=== PATIENT | female | born 1945 | race Caucasian/White ===

== ENCOUNTER 2017-12-13 09:00 | Outpatient (RCR) ==
--- NOTE | 2017-11-21 15:20 | RS.OPPTEV2 ---
Date of Note: 11/20/17 Visit #: 1 Date of Evaluation: 11/20/17 Payer Source: MEDICARE Treatment Diagnosis: Low back and Right LE radiating symptoms. History of Condition/Mechanism of Injury:: Patient reports history of scoliosis and going to Pain Management for several years. She has been receiving injections for back pain. Prior Level of Function.....Patient was independent with: ADL's, Self Care, Work /Vocation, Caregiving, Ambulation/Mobility, Community Integration/Access Functional Limitations: ADL's, Pushing, Pulling, Lifting, Sitting, Standing, Ambulation Current Subjective/complaints:: Patient reports low back and right LE symptoms. States she has pain in the right low back and symptoms of numbness in the lateral right lower leg and great toe. States she had been doing well with the injections she was receiving to her low back, but the last set of injections in September have not seemed to have helped as much. 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 States pushing patients on stretchers can be very difficult. She is able to work four hours without too much difficulty, but if she has to work eight hours, she has a lot of increased pain. She tries not to take pain medication, but sometimes after pain has increased due to work, she takes some to be able to rest. [place], with cows and [place]. States she has to go out and feed the animals once a day. Reports sweeping and shoveling causes increased back pain. Reports she is usually able to sleep well at night. Reports pain on right side. States muscles on the right low back always feel hard and tight. Medical History Medical History Comments:: Scoliosis Surgical History Comments:: DAWSON CAMERON Smoking Status: Never smoker Hx Home Medications: Flexeril,[place] Patient's Goals: Her goal is to get some relief of back pain. Pain Assessment - Pain Description Pain Location: Low back and right leg pain Current Pain Intensity: 3/10 Worst Pain Intensity: 10/10 Functional Outcome Measure Oswestry LBP: 62 - G Codes & Severity Modifier G Codes & Modifier: Mobility current CL. Mobility goal CJ Source of G Code score: Oswestry LBP scale Observation - Observation Inspection: Right shoulder lower than the left in standing. Demonstrates a significant scoliosis with right convexity at the lumbar spine. In supine, patient demonstrates elevated left iliac crest and left LE appears shorter than the right. Posture: Forward Head, Rounded Shoulders Handedness: Right Gait - Gait Pattern Gait Comments: Patient ambulates without an assistive device with a flexed forward gait. Demonstrates a laterally flexed trunk to the left. - ROM Lumbar Flexion: Hand reach to patellae Sidebending to Left: Reach to Lateral Joint Line Sidebending to Right: Reach to Mid-thigh Comments: Right sidebending is limited due to spinal limitation with right lumbar convexity. Tightness reported with lumbar flexion. States lumbar extension does not necessarily cause increased pain, but it does not feel good. AROM throughout bilateral LE's is WFL's. - Strength Trunk Rotation: 4- Good- Comments: LE hip ER 4-/5. All else of LE strength 4/5. - Special Tests SLR Test: Negative Left, Negative Right Seated Dural Stretch Test: Negative Left, Negative Right SI Joint Compression: Negative SI Joint Distraction: Negative Palpation Comments:: Patient demonstrates spinal deformity with signicant right lumbar convexity. Reports soreness with moderate pressure along the lumbar paraspinals. Demonstrates hypomobility of lumbar spine. Sensation - Sensation Comments: Describes less sensitivity along with tingling, along the lateral lower leg and great toe of the right LE. All else intact. Additional Comments: Additional Comments: Left SLR 50-55 degrees, Right SLR 45-50 degrees. Piriformis tight on the right. Anterior hip tighter on the left. In supine, left iliac crest is elevated, which causes the left LE to appear approximately an 1 1/2-2 inches shorter than the right LE. Interventions - Exercise/Activities/Manual Therapy Exercises/Activities: Patient instructed in bilateral hip adductor stretch and passive right sidelying stretch for Left Quadratus Lumborum. Manual Therapy: NA HOME EXERCISE PROGRAM: bialteral hip adductor stretch and passive right sidelying stretch for Left Quadratus Lumborum. 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 She presents today with reports of primarily right low back and right LE pain. Also with tingling in the right lateral lower leg and foot. She presents with marked deformity of the lumbar spine from scoliosis and consequently exhibits an imbalance of muscle length along the spine and in the LE's. She demonstrates potential to benefit from stretching exercises to address muscle imbalances and relieve some stress off of the lumbar spine. She will also benefit from postural education and strengthening to the trunk and LE' s. Patient Education: Education of diagnosis, Body/Joint mechanics, Home Exercise Program, Activity Modification, Education of Plan of Care Rehab Potential: Good Short Term Goals Goal #1: Patient independent and compliant with HEP. Goal to be met by: 12/01/17 Goal #2: SLR equal bilaterally. Goal to be met by: 12/05/17 Goal #3: Right LE symptoms localized to the low back. Goal to be met by: 12/05/17 Goal #4: Pt to demonstrate good postural awareness. Goal to be met by: 12/05/17 Intermediate Goals Goal #1: Pt knows HEP and to continue ex's to maintain functional level at D/C. Goal to be met by: 12/31/17 Goal #2: Score on Oswestry LBP scale improved to less than or equal to 39%. Goal to be met by: 12/31/17 Goal #3: Pt to work 8 hour shift and perform duties with min. low back discomfort. Goal to be met by: 12/31/17 Goal #4: Pt able to care for animals at home with minimal increased back pain. Goal to be met by: 12/31/17 Plan - Treatment to be Provided Procedures: Therapeutic Exercises, Therapeutic Activity, Manual Therapy, Patient Education Modalities: No Modalities - Treatment Plan Frequency: 2-3 X week Duration: 4 weeks ORDER # VISITS AND/OR THROUGH DATE: 12/31/17 - Treatment Code (1) Low back pain Code(s): M54.5 - LOW BACK PAIN Qualifiers: Chronicity: chronic Back pain laterality: right Sciatica presence: unspecified whether sciatica present Qualified Code(s): M54.5 - Low back pain ; G89.29 - Other chronic pain; G89.29 - Other chronic pain (2) Displacement of lumbar disc with radiculopathy Code(s): M51.16 - INTERVERTEBRAL DISC DISORDERS W RADICULOPATHY, LUMBAR REGION Comments: M51.16 (3) Intervertebral disc disorder with radiculopathy of lumbosacral region Code(s): M51.17 - INTVRT DISC DISORDERS W RADICULOPATHY, LUMBOSACRAL REGION Comments: M51.17 (4) Degenerative lumbar spinal stenosis Code(s): M48.061 - SPINAL STENOSIS, LUMBAR REGION WITHOUT NEUROGENIC CRESCENCIO Comments: M48.061 (5) Scoliosis deformity of spine Code(s): M41.9 - SCOLIOSIS, UNSPECIFIED Qualifiers: Scoliosis type: unspecified scoliosis Spinal region: thoracolumbar Qualified Code(s): M41.9 - Scoliosis, unspecified
--- NOTE | 2017-11-22 15:54 | RS.OPPTDN ---
Subjective Date of Note: 11/22/17 Visit #: 1 Date of Evaluation: 11/20/17 Payer Source: MEDICARE Treatment Diagnosis: Low back and Right LE radiating symptoms. Current Subjective/complaints:: Patient reports she did get to try the right sidelying stretch. States she has been falling asleep in that position. Reports she can tell the right HS feels much tighter than the left. Interventions - Exercise/Activities/Manual Therapy Exercises/Activities: Patient received stretching to bilateral HS, SKTC, piriformis, and figure 4. Patient positioned in right sidelying over rolled up pillow, and left iliac crest was inferiorly depressed while she raised left arm over her head for a passive stretch. Patient instructed in bilateral hip adductor stretch and passive right sidelying stretch for Left Quadratus Lumborum. Manual Therapy: NA HOME EXERCISE PROGRAM: bialteral hip adductor stretch and passive right sidelying stretch for Left Quadratus Lumborum. - Charges Timed Code Treatment Minutes: 31 mins Total Treatment Time: 35 mins Procedures billed for this date of service:: Ex2 Assessment: Patient tolerates stretching well, with reports of significant tightness felt in the right HS. Patient is very receptive to instructions/ advice. Patient demonstrates compliance with HEP?: Yes Short Term Goals Goal #1: Patient independent and compliant with HEP. Goal to be met by: 12/01/17 Progress towards Goal:: Progressing Goal #2: SLR equal bilaterally. Goal to be met by: 12/05/17 Goal #3: Right LE symptoms localized to the low back. Goal to be met by: 12/05/17 Goal #4: Pt to demonstrate good postural awareness. Goal to be met by: 12/05/17 Fdc Goals Goal #1: Pt knows HEP and to continue ex's to maintain functional level at D/C. Goal to be met by: 12/31/17 Goal #2: Score on Oswestry LBP scale improved to less than or equal to 39%. Goal to be met by: 12/31/17 Goal #3: Pt to work 8 hour shift and perform duties with min. low back discomfort. Goal to be met by: 12/31/17 Goal #4: Pt able to care for animals at home with minimal increased back pain. Goal to be met by: 12/31/17 Plan PLAN OF CARE EXPIRES ON:: 12/31/17 ORDER # VISITS AND/OR THROUGH DATE: 12/31/17 PLAN: Continue with stretching exercises and progress to trunk and LE strengthening.
--- NOTE | 2017-11-25 12:09 | RS.OPPTDN ---
Subjective Date of Note: 11/25/17 Visit #: 3 Date of Evaluation: 11/20/17 Payer Source: MEDICARE Treatment Diagnosis: Low back and Right LE radiating symptoms. Current Subjective/complaints:: Patient reports stretching is helping her pain. Reports she was using the sidelying stretch with roll under side to be able to sleep last night. Pain Assessment - Pain Description Pain Location: LB, bilateral S-I joints, and right LE. Pain Description: Aching Current Pain Intensity: mild to mod Interventions - Exercise/Activities/Manual Therapy Exercises/Activities: Patient received stretching to bilateral HS, SKTC, piriformis, and figure 4. Isometric hip flexion, isometric hip add. MET with isometric hip extension each side. Ended with additional stretching and with bridging. Total minutes of Exercise: 28mins Manual Therapy: NA HOME EXERCISE PROGRAM: bialteral hip adductor stretch and passive right sidelying stretch for Left Quadratus Lumborum. Bridging. - Charges Timed Code Treatment Minutes: 28mins Total Treatment Time: 30mins Procedures billed for this date of service:: EX2 Assessment: Patient responding well to exercise with reports of some pain relief. Patient Education: Education of diagnosis, Body/Joint mechanics, Home Exercise Program Patient demonstrates compliance with HEP?: Yes Short Term Goals Goal #1: Patient independent and compliant with HEP. Goal to be met by: 12/01/17 Progress towards Goal:: Progressing Goal #2: SLR equal bilaterally. Goal to be met by: 12/05/17 Goal #3: Right LE symptoms localized to the low back. Goal to be met by: 12/05/17 Goal #4: Pt to demonstrate good postural awareness. Goal to be met by: 12/05/17 [facility] Goals Goal #1: Pt knows HEP and to continue ex's to maintain functional level at D/C. Goal to be met by: 12/31/17 Goal #2: Score on Oswestry LBP scale improved to less than or equal to 39%. Goal to be met by: 12/31/17 Goal #3: Pt to work 8 hour shift and perform duties with min. low back discomfort. Goal to be met by: 12/31/17 Goal #4: Pt able to care for animals at home with minimal increased back pain. Goal to be met by: 12/31/17 Plan PLAN OF CARE EXPIRES ON:: 12/31/17 ORDER # VISITS AND/OR THROUGH DATE: 12/31/17 PLAN: Progress MET and pelvic stability exercises.
--- NOTE | 2017-11-28 13:23 | RS.OPPTDN ---
Subjective Date of Note: 11/28/17 Visit #: 4 Date of Evaluation: 11/20/17 Payer Source: MEDICARE Treatment Diagnosis: Low back and Right LE radiating symptoms. Current Subjective/complaints:: Patient reports increased right lowback and hip pain that limited sleep last night. 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 Reports some pain relief following treatment today. She will be gone next week but will continue HEP. Interventions - Exercise/Activities/Manual Therapy Exercises/Activities: Patient received stretching to bilateral HS, SKTC, piriformis, and figure 4. Isometric hip flexion, isometric hip add. Bridging. Ended with additional stretching. Total minutes of Exercise: 15mins Manual Therapy: 20mins Manual therapy of myofascial and soft tissue massage to the bilateral lumbar paraspinals and around S-I joints. Total minutes of Manual Therapy: 20mins HOME EXERCISE PROGRAM: bialteral hip adductor stretch and passive right sidelying stretch for Left Quadratus Lumborum. Bridging. - Objective Findings Observations,measurements,etc.: Patient with increased muscle tone along the right lumbar paraspinals. - Charges Timed Code Treatment Minutes: 35mins Total Treatment Time: 40mins Procedures billed for this date of service:: EX, MT Assessment: Patient with increase pain today, but responds to manual therapy with reports of pain reduction. Patient Education: Body/Joint mechanics, Home Exercise Program Comments: Paitent given tennis ball for self massage and trigger point work. Patient advised to continue HEP with focus on stretching. Patient demonstrates compliance with HEP?: Yes Short Term Goals Goal #1: Patient independent and compliant with HEP. Goal to be met by: 12/01/17 Progress towards Goal:: Partially Met Goal #2: SLR equal bilaterally. Goal to be met by: 12/05/17 Progress towards Goal:: Progressing Goal #3: Right LE symptoms localized to the low back. Goal to be met by: 12/05/17 Progress towards Goal:: Not Met Goal #4: Pt to demonstrate good postural awareness. Goal to be met by: 12/05/17 Progress towards Goal:: Progressing Alf Goals Goal #1: Pt knows HEP and to continue ex's to maintain functional level at D/C. Goal to be met by: 12/31/17 Goal #2: Score on Oswestry LBP scale improved to less than or equal to 39%. Goal to be met by: 12/31/17 Goal #3: Pt to work 8 hour shift and perform duties with min. low back discomfort. Goal to be met by: 12/31/17 Goal #4: Pt able to care for animals at home with minimal increased back pain. Goal to be met by: 12/31/17 Plan PLAN OF CARE EXPIRES ON:: 12/31/17 ORDER # VISITS AND/OR THROUGH DATE: 12/31/17 PLAN: Progress with exercise when patient returns to therapy.
--- NOTE | 2017-12-09 16:30 | RS.OPPTDN ---
Subjective Date of Note: 12/09/17 Visit #: 5 Date of Evaluation: 11/20/17 Payer Source: MEDICARE Treatment Diagnosis: Low back and Right LE radiating symptoms. Current Subjective/complaints:: Patient reports she was in severe pain when traveling last week. States she had such high pain when walking she had to [place] the [place]. Patient reports little to no discomfort in the right S-I joint and LE following treatment. Pain Assessment - Pain Description Pain Location: Right S-I, lateral hip Current Pain Intensity: mod prior to and little to no discomfort following treatment Other Comments regarding Pain:: Patient reports pain and tenderness with light to mod manual pressure just lateral to the right S-I joint. - Heat/Cryotherapy Treatment: Hot Pack ([id number] to the lowback and hips prior to MT and EX. Patient in supine. ) Interventions - Exercise/Activities/Manual Therapy Exercises/Activities: Patient received stretching to bilateral HS, SKTC, piriformis, and figure 4. Isometric hip flexion, isometric hip add. Bridging. ITB and long piriformis stretching to end treatment. Total minutes of Exercise: 15mins Manual Therapy: [id number]. Trigger point release to the right S-I joint area. Manual therapy of myofascial and soft tissue massage to the Right S-I joint and gluteal muscle group during stretching. MET with isometric hip ext on the left in attempt to correct leg length, as right is approx 1/4" longer. (Isometric hip ext on right increases pain) Total minutes of Manual Therapy: 14mins HOME EXERCISE PROGRAM: bialteral hip adductor stretch and passive right sidelying stretch for Left Quadratus Lumborum. Bridging. - Objective Findings Observations,measurements,etc.: Patient demos marked gait deviation with decreased stance on right prior to treatment. She demos only slight deviation following treatment and reports little to no pain. - Charges Timed Code Treatment Minutes: 29mins Total Treatment Time: 39mins Procedures billed for this date of service:: EX, MT Assessment: Patient reposnds well to treatment with reports of reduction in pain and in improvement in gait pattern. Patient Education: Home Exercise Program, Home Safety, Activity Modification Patient demonstrates compliance with HEP?: Yes Short Term Goals Goal #1: Patient independent and compliant with HEP. Goal to be met by: 12/01/17 Progress towards Goal:: Partially Met Goal #2: SLR equal bilaterally. Goal to be met by: 12/05/17 Progress towards Goal:: Progressing Goal #3: Right LE symptoms localized to the low back. Goal to be met by: 12/05/17 Progress towards Goal:: Not Met Goal #4: Pt to demonstrate good postural awareness. Goal to be met by: 12/05/17 Progress towards Goal:: Progressing Skilled Nursing Goals Goal #1: Pt knows HEP and to continue ex's to maintain functional level at D/C. Goal to be met by: 12/31/17 Progress towards goal: Progressing Goal #2: Score on Oswestry LBP scale improved to less than or equal to 39%. Goal to be met by: 12/31/17 Goal #3: Pt to work 8 hour shift and perform duties with min. low back discomfort. Goal to be met by: 12/31/17 Goal #4: Pt able to care for animals at home with minimal increased back pain. Goal to be met by: 12/31/17 Plan PLAN OF CARE EXPIRES ON:: 12/31/17 ORDER # VISITS AND/OR THROUGH DATE: 12/31/17 PLAN: Conitnue with manual therapy and progress exercise to reduce pain and increase functional gait and mobility.
--- NOTE | 2017-12-11 11:17 | RS.OPPTDN ---
Subjective Date of Note: 12/11/17 Visit #: 6 Date of Evaluation: 11/20/17 Payer Source: MEDICARE Treatment Diagnosis: Low back and Right LE radiating symptoms. Current Subjective/complaints:: Patient reports having a flair-up of pain yesterday. States she was painting and went up and down a couple of steps on a ladder. Report some improvement in pain following treatment today. Pain Assessment - Pain Description Pain Location: Right S-I joint and mid gluteal region Current Pain Intensity: mod+ Other Comments regarding Pain:: Patient with increased pain with light palation of the right S-I area. Interventions - Exercise/Activities/Manual Therapy Exercises/Activities: Patient received stretching to bilateral HS, SKTC, piriformis, ITB, and figure 4. Isometric hip flexion, isometric hip add. Pelvic tilt, Bridging. Ended with additional stretching. Total minutes of Exercise: 15mins Manual Therapy: 20mins. Trigger point release to the right S-I joint area. Manual therapy of myofascial and soft tissue massage to the right lower lumbar paraspinals, S-I joint, and mid gluteal muscle with patient in left side-lying. Total minutes of Manual Therapy: 20mins HOME EXERCISE PROGRAM: bialteral hip adductor stretch and passive right sidelying stretch for Left Quadratus Lumborum. Bridging. - Charges Timed Code Treatment Minutes: 35mins Total Treatment Time: 40mins Procedures billed for this date of service:: EX, MT Assessment: Patient responds well to manual therapy today with reports of decreased pain. She seems to be aggravating symptoms with the work she is doing at home. Patient Education: Body/Joint mechanics, Home Exercise Program, Activity Modification Comments: Patient advised to cut back on painting and going up/down step ladder. Also, to take frequent breaks for stretching and pelvic alignment exercises. Patient demonstrates compliance with HEP?: Yes Short Term Goals Goal #1: Patient independent and compliant with HEP. Goal to be met by: 12/01/17 Progress towards Goal:: Partially Met Goal #2: SLR equal bilaterally. Goal to be met by: 12/05/17 Progress towards Goal:: Progressing Goal #3: Right LE symptoms localized to the low back. Goal to be met by: 12/05/17 Progress towards Goal:: Not Met Goal #4: Pt to demonstrate good postural awareness. Goal to be met by: 12/05/17 Progress towards Goal:: Progressing Watermelon Inspector Goals Goal #1: Pt knows HEP and to continue ex's to maintain functional level at D/C. Goal to be met by: 12/31/17 Progress towards goal: Progressing Goal #2: Score on Oswestry LBP scale improved to less than or equal to 39%. Goal to be met by: 12/31/17 Goal #3: Pt to work 8 hour shift and perform duties with min. low back discomfort. Goal to be met by: 12/31/17 Goal #4: Pt able to care for animals at home with minimal increased back pain. Goal to be met by: 12/31/17 Plan PLAN OF CARE EXPIRES ON:: 12/31/17 ORDER # VISITS AND/OR THROUGH DATE: 12/31/17 PLAN: Continue manual therapy and progressive exercise to reduce pain and improve functional mobility and ambulation.
--- NOTE | 2017-12-13 11:41 | RS.OPPTDN ---
Subjective Date of Note: 12/13/17 Visit #: 7 Date of Evaluation: 11/20/17 Payer Source: MEDICARE Treatment Diagnosis: Low back and Right LE radiating symptoms. Current Subjective/complaints:: Patient states she is not doing good today. States she is really hurting in the right hip/low back and having cramping into the right calf. States she has been painting with her sister and thinks that activity has caused increased pain. Reports significant tenderness with manual therapy to right gluteal region. Pain Assessment - Pain Description Pain Location: right SI /low back and radiating into calf. Current Pain Intensity: bad today, not quanitified - Heat/Cryotherapy Treatment: Hot Pack (X 15 mins to low back while supine, prior to stretching and MT) Interventions - Exercise/Activities/Manual Therapy Exercises/Activities: Patient received stretching to bilateral HS, SKTC, piriformis, ITB, and figure 4. Total minutes of Exercise: 12 mins. Manual Therapy: 19 mins. Trigger point release to the right S-I joint area. Manual therapy of myofascial and soft tissue massage to the right lower lumbar paraspinals, S-I joint, and mid gluteal muscle with patient in left side-lying. Patient with significant reports of tenderness in the beginning, but reports this decreased and was able to tolerate deeper pressure with manual therapy as treatment continued. HOME EXERCISE PROGRAM: bialteral hip adductor stretch and passive right sidelying stretch for Left Quadratus Lumborum. Bridging. - Charges Timed Code Treatment Minutes: 31 mins Total Treatment Time: 46 mins Procedures billed for this date of service:: HP, MT, EX Assessment: Patient with reports of increased pain possibly due to increased activitity such as painting and use of a ladder. She exhibits continued tenderness and muscle guarding in the gluteal muscles, which is improved with manual therapy. She demonstrates potential to benefit from continued manual therapy, stretching, and progressed stability exercises. Patient demonstrates compliance with HEP?: Yes Short Term Goals Goal #1: Patient independent and compliant with HEP. Goal to be met by: 12/01/17 Progress towards Goal:: Partially Met Goal #2: SLR equal bilaterally. Goal to be met by: 12/05/17 Progress towards Goal:: Progressing Goal #3: Right LE symptoms localized to the low back. Goal to be met by: 12/05/17 Progress towards Goal:: Not Met Goal #4: Pt to demonstrate good postural awareness. Goal to be met by: 12/05/17 Progress towards Goal:: Progressing Assisted Goals Goal #1: Pt knows HEP and to continue ex's to maintain functional level at D/C. Goal to be met by: 12/31/17 Progress towards goal: Progressing Goal #2: Score on Oswestry LBP scale improved to less than or equal to 39%. Goal to be met by: 12/31/17 Goal #3: Pt to work 8 hour shift and perform duties with min. low back discomfort. Goal to be met by: 12/31/17 Goal #4: Pt able to care for animals at home with minimal increased back pain. Goal to be met by: 12/31/17 Plan PLAN OF CARE EXPIRES ON:: 12/28/17 ORDER # VISITS AND/OR THROUGH DATE: 12/31/17 PLAN: continue manual therapy and progression of exercises.
== END 2017-12-14 ==
PROVIDERS: ATTEND Pain Medicine Interventional Pain Medicine
DX: M51.16 Intervertebral disc disorders with radiculopathy, lumbar region (principal); M51.17 Intervertebral disc disorders with radiculopathy, lumbosacral region; M48.061 Spinal stenosis, lumbar region without neurogenic claudication; M48.07 Spinal stenosis, lumbosacral region; M47.816 Spondylosis without myelopathy or radiculopathy, lumbar region; M47.817 Spondylosis without myelopathy or radiculopathy, lumbosacral region; M51.36 Other intervertebral disc degeneration, lumbar region; M51.37 Other intervertebral disc degeneration, lumbosacral region

== ENCOUNTER 2017-12-30 13:00 | Outpatient (RCR) ==
--- NOTE | 2017-12-16 13:35 | RS.OPPTDN ---
Subjective Date of Note: 12/16/17 Visit #: 8 Date of Evaluation: 11/20/17 Payer Source: MEDICARE Treatment Diagnosis: Low back and Right LE radiating symptoms. Current Subjective/complaints:: Patient reports right S-I pain conitnues. States she is finished painting and will not be climbing ladder now. 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 She has seen physician and will be having her scheduled injection and he will also injection of the right S-I joint. Pain Assessment - Pain Description Pain Location: right lowback, S-I joint, and mid gluteal region Current Pain Intensity: moderate Interventions - Exercise/Activities/Manual Therapy Exercises/Activities: Patient received stretching to bilateral HS, SKTC, piriformis, ITB, and figure 4. Isometric hip add and isometric hip flexion. Left isometric hip extension. Total minutes of Exercise: 10mins Manual Therapy: Trigger point release to the right S-I joint area. Manual therapy of myofascial and soft tissue massage to the right lower lumbar paraspinals, S-I joint, and mid gluteal muscle with patient in left side-lying. Patient reports tenderness to the right mid glut and S-I area, with patient reporting better tolerance as manual therapy progressed. Total minutes of Manual Therapy: 20mins HOME EXERCISE PROGRAM: bialteral hip adductor stretch and passive right sidelying stretch for Left Quadratus Lumborum. Bridging. - Objective Findings Observations,measurements,etc.: Patient demos improved gait pattern following manual therapy. - Charges Timed Code Treatment Minutes: 30mins Total Treatment Time: 40mins Procedures billed for this date of service:: EX, MT Assessment: Patient responds well to manual therapy with reports of reduction in pain and improvement in ambulation. Patient Education: Body/Joint mechanics, Home Exercise Program Patient demonstrates compliance with HEP?: Yes Short Term Goals Goal #1: Patient independent and compliant with HEP. Goal to be met by: 12/01/17 Progress towards Goal:: Partially Met Goal #2: SLR equal bilaterally. Goal to be met by: 12/05/17 Progress towards Goal:: Progressing Goal #3: Right LE symptoms localized to the low back. Goal to be met by: 12/05/17 Progress towards Goal:: Not Met Goal #4: Pt to demonstrate good postural awareness. 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 Goal to be met by: 12/31/17 Progress towards goal: Progressing Goal #2: Score on Oswestry LBP scale improved to less than or equal to 39%. Goal to be met by: 12/31/17 Goal #3: Pt to work 8 hour shift and perform duties with min. low back discomfort. Goal to be met by: 12/31/17 Progress towards goal: Not Met Goal #4: Pt able to care for animals at home with minimal increased back pain. Goal to be met by: 12/31/17 Progress towards goal: Progressing Plan PLAN OF CARE EXPIRES ON:: 12/31/17 ORDER # VISITS AND/OR THROUGH DATE: 12/31/17 PLAN: Continue manual therapy and progress exercise to reduce pain and increase functional activity and gait pattern.
--- NOTE | 2017-12-18 11:47 | RS.OPPTDN ---
Subjective Date of Note: 12/18/17 Visit #: 9 Date of Evaluation: 11/20/17 Payer Source: MEDICARE Treatment Diagnosis: Low back and Right LE radiating symptoms. Current Subjective/complaints:: Patient reports pain in her right LE has been worse the last few days. Reports trying HEP but nothing has helped. She is waiting on word from physicians office about being seen today. She reports muscle tenderness at the right S-I and gluteal region, but not as intense. Patient agrees to contact this department if she has injections and needs to cancel Fridays appointment. Pain Assessment - Pain Description Pain Location: Right S-I, gluts, and into right LE Current Pain Intensity: mod+ - Heat/Cryotherapy Treatment: Hot Pack ([id number] to lowback and hips prior to EX and MT. Patient in supine) Interventions - Exercise/Activities/Manual Therapy Exercises/Activities: Patient received stretching to bilateral HS, SKTC, piriformis, ITB, and figure 4. Isometric hip add and isometric hip flexion. Left isometric hip extension. Total minutes of Exercise: 10mins Manual Therapy: Trigger point release to the right S-I joint area. Manual therapy of myofascial and soft tissue massage to the right lower lumbar paraspinals, S-I joint, and mid gluteal muscle with patient in left side-lying. Tenderness continues at the right mid glut and S-I area, but reports not as intense. Total minutes of Manual Therapy: 22mins HOME EXERCISE PROGRAM: bialteral hip adductor stretch and passive right sidelying stretch for Left Quadratus Lumborum. Bridging. - Charges Timed Code Treatment Minutes: 32mins Total Treatment Time: 42mins Procedures billed for this date of service:: EX, MT Assessment: Patient having a flair-up of right LE radicular symptoms. She should be seeing physician and receiving injections. May attend Saturday if she is waiting on injections and she feels todays treatment helped reduce symptoms. Comments: Advised patient to continue basic HEP of stretching and pelvic alignment exercises. Patient demonstrates compliance with HEP?: Yes Short Term Goals Goal #1: Patient independent and compliant with HEP. Goal to be met by: 12/01/17 Progress towards Goal:: Met Goal #2: SLR equal bilaterally. Goal to be met by: 12/05/17 Progress towards Goal:: Progressing Goal #3: Right LE symptoms localized to the low back. Goal to be met by: 12/05/17 Progress towards Goal:: Not Met Comments:: Regressed today Goal #4: Pt to demonstrate good postural awareness. 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 Goal to be met by: 12/31/17 Progress towards goal: Met Comments: Patient know basic HEP if today is her last session. Goal #2: Score on Oswestry LBP scale improved to less than or equal to 39%. Goal to be met by: 12/31/17 Progress towards goal: Not Met Goal #3: Pt to work 8 hour shift and perform duties with min. low back discomfort. Goal to be met by: 12/31/17 Progress towards goal: Not Met Goal #4: Pt able to care for animals at home with minimal increased back pain. Goal to be met by: 12/31/17 Progress towards goal: Progressing Plan PLAN OF CARE EXPIRES ON:: 12/31/17 ORDER # VISITS AND/OR THROUGH DATE: 12/31/17 PLAN: Hold treatment pending appointment with physician and injections.
--- NOTE | 2017-12-26 14:21 | RS.PTSUM ---
Progress Note/Summary Date of Note: 12/24/17 Date of Evaluation: 11/20/17 Number of Visits: 10 Current Complaints/Gains: Patient states she received injections in her right SI /hip region last week. States it has seemed to help until today. States she is feeling worse today, maybe from too much activity. She worked 4 hours yesterday , which bothered her back. She washed and cleaned out a vehicle this weekend. Objective Measurements/Presentation: Patient received assistance with stretching the right HS, piriformis, lower trunk rotation, and anterior hip joint. Performed bridging, isometric trunk rotation, and SLR's (2 sets of 10 SLR). X 19 mins. Received DTM and trigger point work X 18 mins to right superior gluteal region following exercises. Total treatment time 37 mins. Units charged: EX, Manual therapy G Codes: Mobility current CL. Mobility goal CJ Source of G Code Score: Oswestry LBP scale: score of 62 (same score as evaluation, but some areas have improved while some have gotten a little worse. ) She shows improvement in the categories of sitting, standing, social life, and changing degree of pain. Areas she rated worse were lifting,sleeping, and traveling. - Short Term Goals Goal #1: Patient independent and compliant with HEP. Goal to be met by: 01/02/18 Progress towards Goal:: Met Goal #2: SLR equal bilaterally. Goal to be met by: 01/02/18 Progress towards Goal:: Progressing Goal #3: Right LE symptoms localized to the low back. Goal to be met by: 01/02/18 Progress towards Goal:: No Change Goal #4: Pt to demonstrate good postural awareness. Goal to be met by: 01/02/18 Progress towards Goal:: Progressing - Senior Care Goals Goal #1: Pt knows HEP and to continue ex's to maintain functional level at D/C. Goal to be met by: 12/31/17 Progress towards goal: Met Goal #2: Score on Oswestry LBP scale improved to less than or equal to 39%. Goal to be met by: 01/16/18 Progress towards goal: Not Met Goal #3: Pt to work 4 hour shift and perform duties with min. low back discomfort. Goal to be met by: 01/16/18 Progress towards goal: Not Met Goal #4: Pt able to care for animals at home with minimal increased back pain. Goal to be met by: 01/16/18 Progress towards goal: Progressing - Assessment Assessment of Improvement/Progress: Patient reports improved tolerance with stretching and less tenderness to the right SI and superior gluteal region. She reports improved tolerance for sitting and standing activities. We have focused treatment at this point on stretching, manual therapy, and a small amount of stability exercises. She demonstrates potential to benefit from two more weeks of therapy to focus on strengthening and functional activity to improve her tolerance for work and activities. - Plan Plan: Will request continuation of therapy sessions. Frequency: 3 X week Duration: 2 weeks PLAN OF CARE EXPIRES ON:: 01/16/18 ORDER # VISITS AND/OR THROUGH DATE: 01/16/18
--- NOTE | 2017-12-26 14:36 | RS.OPPTDN ---
Subjective Date of Note: 12/26/17 Visit #: 11 Date of Evaluation: 11/20/17 Payer Source: MEDICARE Treatment Diagnosis: Low back and Right LE radiating symptoms. Current Subjective/complaints:: Patient states she feels better today than she did on Saturday. States working the 4 hours on Saturday really made her hurt worse. States she is performing her exercises at home. States she would like to continue therapy for more stability exercises, as the therapy has improved her tolerance for sitting and standing. Reports continued discomfort into the right lower leg. Interventions - Exercise/Activities/Manual Therapy Exercises/Activities: Patient received stretching to bilateral HS, SKTC, piriformis,and figure 4.Attempted contract-relax technique for HS stretch, but patient could not tolerate isometric into right hip extension due to back pain. Attempts at ITB stretch in sidelying causes tingling in her right foot. Stretching of ITB was discontinued in that position. Performs isometric hip add and, hip flexion, and trunk rotation. SLR 2 sets of 10 reps each leg, bridging x 10 reps. Total minutes of Exercise: X 19 mins Manual Therapy: Manual therapy of myofascial and soft tissue massage to the right lower lumbar paraspinals, S-I joint, and mid gluteal muscle with patient in left side-lying. Mild tenderness reported now with treatment. Total minutes of Manual Therapy: X 17 mins HOME EXERCISE PROGRAM: bialteral hip adductor stretch and passive right sidelying stretch for Left Quadratus Lumborum. Bridging. - Charges Timed Code Treatment Minutes: 36 mins Total Treatment Time: 36 mins Procedures billed for this date of service:: EX, manual therapy Assessment: Patient with less tenderness and less obvious trigger points to right lumbar paraspinals, SI region, and superior gluteal regon. Advised patient not to continue the left sidelying right IT band stretch if it increases radicular symptoms into the right LE. Patient Education: Education of diagnosis, Body/Joint mechanics, Home Exercise Program, Education of Plan of Care Patient demonstrates compliance with HEP?: Yes Short Term Goals Goal #1: Patient independent and compliant with HEP. Goal to be met by: 01/02/18 Progress towards Goal:: Met Goal #2: SLR equal bilaterally. Goal to be met by: 01/02/18 Progress towards Goal:: Progressing Goal #3: Right LE symptoms localized to the low back. Goal to be met by: 01/02/18 Progress towards Goal:: No Change Goal #4: Pt to demonstrate good postural awareness. 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 Goal to be met by: 12/31/17 Progress towards goal: Met Goal #2: Score on Oswestry LBP scale improved to less than or equal to 39%. Goal to be met by: 01/16/18 Progress towards goal: Not Met Goal #3: Pt to work 4 hour shift and perform duties with min. low back discomfort. Goal to be met by: 01/16/18 Progress towards goal: Not Met Goal #4: Pt able to care for animals at home with minimal increased back pain. Goal to be met by: 01/16/18 Progress towards goal: Progressing Plan PLAN OF CARE EXPIRES ON:: 01/16/18 ORDER # VISITS AND/OR THROUGH DATE: 01/16/18 PLAN: Progress stability and functional activities.
--- NOTE | 2017-12-30 15:44 | RS.OPPTDN ---
Subjective Date of Note: 12/30/17 Visit #: 12 Date of Evaluation: 11/20/17 Payer Source: MEDICARE Treatment Diagnosis: Low back and Right LE radiating symptoms. Current Subjective/complaints:: Patient reports injection has helped but she worked 4 hours this morning and right gluteal area pain has increased. Reports feeling much better following manual therapy and is going home to rest. Pain Assessment - Pain Description Pain Location: Right S-I and gluteal region, radiating pain into right LE. Current Pain Intensity: mod to high Other Comments regarding Pain:: Patient reports pain reduced to mild with ambulation following treatment. - Heat/Cryotherapy Treatment: Hot Pack ([id number] to lowback and hips prior to MT. Patient in supine. ) Interventions - Exercise/Activities/Manual Therapy Exercises/Activities: Patient assited with stretching of the right hams, piriformis and gentle SKTC. Total minutes of Exercise: 3mins Manual Therapy: Manual therapy of myofascial and soft tissue massage to the right lower lumbar paraspinals, S-I joint, and mid gluteal muscle with patient in left side-lying. Patient assisted to supine for trigger point release at the right S-I area and mid belly of the piriformis. Total minutes of Manual Therapy: 25mins HOME EXERCISE PROGRAM: bialteral hip adductor stretch and passive right sidelying stretch for Left Quadratus Lumborum. Bridging. - Charges Timed Code Treatment Minutes: 28mins Total Treatment Time: 48mins Procedures billed for this date of service:: DENICE, MT2 Assessment: Patient with another flair-up of pain following a 4 hour shift at work. She responds to treatment with reports of pain reduction and improvement with ambulation. Patient benefitting from manual therapy to reduce pain and increase her functional ambulation. Patient Education: Home Exercise Program Comments: Patient given an additonal tennis ball for trigger point release when sitting/driving. Patient reports she has been using one in the evening and it helps reduce her pain. Patient demonstrates compliance with HEP?: Yes Short Term Goals Goal #1: Patient independent and compliant with HEP. Goal to be met by: 01/02/18 Progress towards Goal:: Met Goal #2: SLR equal bilaterally. Goal to be met by: 01/02/18 Progress towards Goal:: Progressing Goal #3: Right LE symptoms localized to the low back. Goal to be met by: 01/02/18 Progress towards Goal:: No Change Goal #4: Pt to demonstrate good postural awareness. 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 Goal to be met by: 12/31/17 Progress towards goal: Met Goal #2: Score on Oswestry LBP scale improved to less than or equal to 39%. Goal to be met by: 01/16/18 Progress towards goal: Not Met Goal #3: Pt to work 4 hour shift and perform duties with min. low back discomfort. Goal to be met by: 01/16/18 Progress towards goal: Not Met Goal #4: Pt able to care for animals at home with minimal increased back pain. Goal to be met by: 01/16/18 Progress towards goal: Progressing Plan PLAN OF CARE EXPIRES ON:: 01/16/18 ORDER # VISITS AND/OR THROUGH DATE: 01/16/18 PLAN: Continue manual therapy and progress exercise as tolerated.
--- NOTE | 2018-01-01 16:25 | RS.CXNS ---
Date of scheduled appointment: 01/01/18 Type: Cancel (Patient calls to cancel therapy today and Saturday. States she is going back to her physician due to pain level.)
== END 2018-01-13 23:59 ==
PROVIDERS: ATTEND Pain Medicine Interventional Pain Medicine
DX: M51.16 Intervertebral disc disorders with radiculopathy, lumbar region (principal); M51.17 Intervertebral disc disorders with radiculopathy, lumbosacral region; M48.061 Spinal stenosis, lumbar region without neurogenic claudication; M48.07 Spinal stenosis, lumbosacral region; M47.816 Spondylosis without myelopathy or radiculopathy, lumbar region; M47.817 Spondylosis without myelopathy or radiculopathy, lumbosacral region; M51.36 Other intervertebral disc degeneration, lumbar region; M51.37 Other intervertebral disc degeneration, lumbosacral region; M54.5 Low back pain; G89.29 Other chronic pain; M41.9 Scoliosis, unspecified